=== PATIENT | male | born 1990 | race Hispanic/Latino ===

== ENCOUNTER 2024-08-27 22:57 | Emergency (ER) | payer SELFPAY ==
[~2024-08-27] VITALS: Ht 182.9 cm; Wt 136.1 kg
[2024-08-27 23:03] VITALS: TEMP 98.8
[2024-08-27] MEDS: TRAMADOL HCL 50 MG TAB PO STA (23:15)
[2024-08-27] MEDS ORDERED: ULTRAM 50MG50 MG PO (23:44)
[2024-08-28 00:27] VITALS: PULSE 109; RESP 20; O2SAT 100
== END 2024-08-28 00:27 | disposition home or self-care (01) ==
LOC: ER 23:07
DX: S93.692A Other sprain of left foot, initial encounter (principal); Y93.67 Activity, basketball; Y92.310 Basketball court as the place of occurrence of the external cause
CPT/HCPCS: 99284